=== PATIENT | male | born 2000 ===

== ENCOUNTER 2022-08-18 16:00 | Emergency (ER) | payer OTHER, SELFPAY ==
[2022-08-18 16:15] VITALS: BP 133/73; PULSE 89; RESP 16; TEMP 36.8; O2SAT 100
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
== END 2022-08-18 16:36 | disposition home or self-care (01) ==
PROVIDERS: Emergency Provider Nurse Practitioner
DX: H57.11 Ocular pain, right eye (principal)
CPT/HCPCS: 99213; G0463